=== PATIENT | female | born 1945 | race Caucasian/White ===

== ENCOUNTER → 2017-01-02 | Outpatient (CLI) | payer MEDICARE | LOC: CPPFTMAIN 13:21 | PROVIDERS: ATTEND Physician Assistant | DX: J45.909 Unspecified asthma, uncomplicated (principal) | CPT/HCPCS: 94060; 94726; 94729 ==

== ENCOUNTER → 2017-04-08 | Outpatient (CLI) | payer MEDICARE ==
--- NOTE | 2017-04-10 09:27 | MM ---
Reason for exam: screening (asymptomatic). Last mammogram was performed 3 years and 3 months ago. History: Patient is postmenopausal. Cyst aspiration of the right breast, 1995. Took hormonal contraceptives for 1 year. Took estrogen for 5 years. Took progesterone for 5 years. Physical Findings: A clinical breast exam by your physician is recommended on an annual basis and results should be correlated with mammographic findings. MG 3D Screening Mammo W/Cad Bilateral CC and MLO view(s) were taken. Prior study comparison: December 29, 2013, bilateral MG screening mammo w CAD. October 16, 2010, bilateral digital screening mammo w/CAD. There are scattered fibroglandular densities. There is a 4mm mass with calcifications in the central lower right breast at middle depth. Just anterior to this also on 3D image 14/61 thre is a 4mm asymmetry. ASSESSMENT: Incomplete: need additional imaging evaluation, BI-RAD 0 RECOMMENDATION: Special view mammogram of the right breast. If lesion persists on supplemental views, image directed ultrasound is recommended. [facility] will attempt to contact patient to return for supplemental views and ultrasound if indicated.
== END | disposition home or self-care (01) ==
LOC: RADMAMWWP 07:26
PROVIDERS: ATTEND Internal Medicine
DX: Z12.31 Encounter for screening mammogram for malignant neoplasm of breast (principal)
CPT/HCPCS: 77063; G0202

== ENCOUNTER → 2017-04-16 | Outpatient (CLI) | payer MEDICARE ==
--- NOTE | 2017-04-17 10:15 | MM ---
Reason for exam: additional evaluation requested from abnormal screening. Last mammogram was performed less than 1 month ago. History: Patient is postmenopausal. Cyst aspiration of the right breast, 1995. Took hormonal contraceptives for 1 year. Took estrogen for 5 years. Took progesterone for 5 years. Physical Findings: Nurse did not find any significant physical abnormalities on exam. MG 3D Work Up W/Cad RT CC, MLO, ML, spot compression CC, and spot compression MLO view(s) were taken of the right breast. Prior study comparison: April 08, 2017, bilateral MG 3d screening mammo w/cad. December 29, 2013, bilateral MG screening mammo w CAD. Finding: There are typically benign calcifications in the right breast. Tiny nodularity in the right breast persists. No suspicious lesion in the right breast. These results were verbally communicated with the patient and result sheet given to the patient on 04/16/17. ASSESSMENT: Benign, BI-RAD 2 RECOMMENDATION: Follow-up diagnostic mammogram of both breasts in 1 year.
== END ==
LOC: RADMAMWWP 13:58
PROVIDERS: ATTEND Internal Medicine
DX: R92.8 Other abnormal and inconclusive findings on diagnostic imaging of breast (principal)
CPT/HCPCS: G0206; G0279

== ENCOUNTER → 2018-09-25 | Outpatient (CLI) | payer MEDICARE ==
--- NOTE | 2018-09-26 11:41 | MM ---
Reason for exam: screening (asymptomatic). Last mammogram was performed 1 year and 5 months ago. History: Patient is postmenopausal. Cyst aspiration of the right breast, 1995. Took hormonal contraceptives for 1 year. Took estrogen for 5 years. Took progesterone for 5 years. Physical Findings: A clinical breast exam by your physician is recommended on an annual basis and results should be correlated with mammographic findings. MG 3D Screening Mammo W/Cad Bilateral CC and MLO view(s) were taken. Prior study comparison: April 16, 2017, right breast MG 3d work up w/cad RT. April 08, 2017, bilateral MG 3d screening mammo w/cad. The breast tissue is heterogeneously dense. This may lower the sensitivity of mammography. There is no discrete abnormality. No significant changes when compared with prior studies. ASSESSMENT: Negative, BI-RAD 1 RECOMMENDATION: Routine screening mammogram of both breasts in 1 year.
== END | disposition home or self-care (01) ==
LOC: RADMAMWWP 09:03
PROVIDERS: ATTEND Internal Medicine
DX: Z12.31 Encounter for screening mammogram for malignant neoplasm of breast (principal)
CPT/HCPCS: 77063; 77067

== ENCOUNTER → 2022-05-15 | Outpatient (CLI) | payer MEDICARE ==
--- NOTE | 2022-05-15 13:14 | CT ---
EXAMINATION TYPE: CT foot LT wo con CT DLP: 335.50 mGycm, Automated exposure control for dose reduction was used. DATE OF EXAM: 05/15/2022 12:54 PM COMPARISON: None CLINICAL INDICATION:Female, 77 years old with history of M79.675 pain, LT toe pain, possible lesion, pt diabetic TECHNIQUE: Axial images were obtained of the left foot . Additional coronal and sagittal reformatted images and soft tissue and bone window were obtained for review. 3-D reconstruction was created on a separate workstation. Contrast used: None Oral contrast used: None FINDINGS: Diffuse soft tissue edema seen throughout the soft tissues of the foot. No organizing fluid collection identified. There is degeneration changes and subchondral cystic changes most pronounced at the first digit metatarsal head. Additional joint space narrowing is present. No evidence of fract ure. No evidence of osseous erosion to suggest osteomyelitis. No CT evidence for soft tissue wound or osseous bone lesion. IMPRESSION: 1. Diffuse soft tissue swelling and edema. 2. Mild degeneration changes at the joints of the foot most pronounced at this first digit tarsometa tarsal joint. 3. No evidence of osseous erosion to suggest osteomyelitis. 4. No evidence of acute fracture.
== END ==
LOC: RADCTMAIN 11:21
PROVIDERS: ATTEND Family Medicine
DX: M19.072 Primary osteoarthritis, left ankle and foot (principal); M79.89 Other specified soft tissue disorders

== ENCOUNTER → 2022-07-30 | Outpatient (CLI) | payer MEDICARE ==
--- NOTE | 2022-07-31 08:40 | MM ---
Reason for Exam: Screening (asymptomatic). Last mammogram was performed 3 year(s) and 10 month(s) ago. Patient History: Menarche at age 13. First Full-Term at age 22. Postmenopausal. Estrogen for 5 years until age 57. Progesterone for 5 years until age 57. Hormonal Contraceptives for 1 year until age 23. 1996, Cyst Aspiration on the Right side. Risk Values: Yamilet 5 year model risk: 1.6%. NCI Lifetime model risk: 3.2%. Prior Study Comparison: 04/08/2017 Bilateral Screening Mammogram, [facility]. 04/16/2017 Right Diagnostic Mammogram, [facility]. 09/25/2018 Bilateral Screening Mammogram, [facility]. Tissue Density: There are scattered fibroglandular densities. Findings: Analyzed By CAD. There is no suspicious group of microcalcifications or new suspicious mass in either breast. Overall Assessment: Negative, BI-RAD 1 Management: Screening Mammogram of both breasts in 1 year. A clinical breast exam by your physician is recommended on an annual basis and results should be correlated with mammographic findings. Electronically signed and approved by: Pepe Bar M.D. Radiologis
== END | disposition home or self-care (01) ==
LOC: RADMAMWWP 09:40
PROVIDERS: ATTEND Family Medicine
DX: Z12.31 Encounter for screening mammogram for malignant neoplasm of breast (principal); Z78.0 Asymptomatic menopausal state
CPT/HCPCS: 77063; 77067

== ENCOUNTER → 2023-07-24 | Outpatient (CLI) | payer MEDICARE ==
--- NOTE | 2023-07-24 18:10 | US ---
EXAMINATION TYPE: US thyroid st tissue head/neck DATE OF EXAM: 07/24/2023 COMPARISON: NONE CLINICAL INDICATION: Female, 78 years old with history of E04.1 NONTOXIC SINGLE THYROID NODULE; GLAND SIZE: Right Lobe: 4.6 x 1.3 x 1.2 cm Overall Parenchyma: heterogenous Left Lobe: 4.9 x 1.5 x 0.9 cm Overall Parenchyma: heterogenous Isthmus Thickness: 0.5 cm NODULES RIGHT: # of nodules measured on right: A few scattered nodules, largest measured 1. 0.9 X 0.9 x 0.5 cm, lower, mixed cystic and solid, hypoechoic TR 4 nodule, which is wider than t all, with smooth margins, with echogenic foci. Prior size: TEAROOM HOST LEFT: # of nodules measured on left: Few scattered nodules, measured largest 1. 0.7 X 0.5 x 0.4 cm, mid, cystic or almost completely cystic, anechoic TR to nodule, which is wid er than tall, with smooth margins, without echogenic foci. Prior size: TEAROOM HOST ISTHMUS: # of nodules measured in the isthmus: 0 Bilateral neck scanned, no evidence of lymphadenopathy. IMPRESSION: Consider multinodular goiter. Dominant 9 mm TR4 nodule in the right lobe. 2017 ACR TI-RADS LEVEL: TR-RADS 4 - Moderately Suspicious: Follow if > 1 cm, FNA if > 1.5 cm *Highest TI-RADS level nodule reported
== END | disposition home or self-care (01) ==
LOC: RADUSWWP 15:25
PROVIDERS: ATTEND Family Medicine
DX: E04.2 Nontoxic multinodular goiter (principal)
CPT/HCPCS: 76536

== ENCOUNTER → 2023-08-19 | Outpatient (CLI) | payer MEDICARE ==
--- NOTE | 2023-08-19 09:19 | MM ---
Reason for Exam: Screening (asymptomatic). Last mammogram was performed 1 year(s) and 1 month(s) ago. Patient History: Menarche at age 13. First Full-Term at age 22. Postmenopausal. Estrogen for 5 years until age 57. Progesterone for 5 years until age 57. Hormonal Contraceptives for 1 year until age 23. 1996, Cyst Aspiration on the Right side. Risk Values: Yamilet 5 year model risk: 1.6%. NCI Lifetime model risk: 3.0%. Prior Study Comparison: 04/16/2017 Right Diagnostic Mammogram, [facility]. 09/25/2018 Bilateral Screening Mammogram, [facility]. 07/30/2022 Bilateral MG 3D screening mammo w/cad, [facility]. Tissue Density: There are scattered fibroglandular densities. Findings: Analyzed By CAD. There is no suspicious group of microcalcifications or new suspicious mass. Overall Assessment: Negative, BI-RAD 1 Management: Screening Mammogram of both breasts in [address] [facility] will attempt to contact patient to return for supplemental views and ultrasound if indicated. Patient should continue monthly self-breast exams. A clinical breast exam by your physician is recommended on an annual basis. This exam should not preclude additional follow-up of suspicious palpable abnormalities. Note on Yamilet scores and lifetime risk: 1. A Yamilet score greater than 3% is considered moderate risk. If this is the case, consider specialist referral to assess eligibility for a risk reducing agent. 2. If overall lifetime risk for the development of breast cancer is 20% or higher, the patient may qualify for future screening with alternating mammogram and breast MRI. Electronically signed and approved by: Hansel Ambrosio DO
== END | disposition home or self-care (01) ==
LOC: RADMAMWWP 08:26
PROVIDERS: ATTEND Family Medicine
DX: Z12.31 Encounter for screening mammogram for malignant neoplasm of breast (principal)
CPT/HCPCS: 77063; 77067

== ENCOUNTER 2024-10-01 22:24 | Emergency (ER) | payer MEDICARE ==
[2024-10-01 23:55] LABS: ALT 36 U/L (4-34); AST 34 U/L (14-36); African American GFR (CKD) >90 (>60 ml/min/1.73 sqM); Albumin 4.4 g/dL (3.5-5.0); Alkaline Phosphatase 76 U/L (38-126); Anion Gap 12 mmol/L; Blood Urea Nitrogen 18 mg/dL (7-17); Calcium 9.8 mg/dL (8.4-10.2); Carbon Dioxide 23 mmol/L (22-30); Chloride 96 mmol/L (98-107); Glucose 106 mg/dL (74-99); Non-African American GFR(CKD) 79 (>60 ml/min/1.73 sqM); Potassium 3.5 mmol/L (3.5-5.1); Sodium 131 mmol/L (137-145); Total Bilirubin 1.1 mg/dL (0.2-1.3); Total Protein 6.8 g/dL (6.3-8.2)
[2024-10-02 00:02] LABS: Basophils % (A) 0 %; Eosinophils # (A) 0.2 k/uL (0-0.7); Eosinophils % (A) 3 %; HGB 13.5 gm/dL (11.4-16.0); Lymphocytes # (A) 2.1 k/uL (1.0-4.8); Lymphocytes % (A) 26 %; MCH 31.1 pg (25.0-35.0); MCHC 33.7 g/dL (31.0-37.0); MCV 92.2 fL (80.0-100.0); Mean Platelet Volume 8.8; Monocytes # (A) 0.5 k/uL (0-1.0); Monocytes % (A) 7 %; Neutrophils # (A) 4.8 k/uL (1.3-7.7); Neutrophils % (A) 62 %; Platelet Count 211 k/uL (150-450); RBC 4.34 m/uL (3.80-5.40); RDW 12.3 % (11.5-15.5); WBC 7.8 k/uL (3.8-10.6)
--- NOTE | 2024-10-02 02:40 | US ---
EXAM: US Duplex Left Lower Extremity Veins CLINICAL HISTORY: US Reason: Swelling and pain TECHNIQUE: Real-time duplex ultrasound scan of the left lower extremity veins integrating B-mode two-dimensional vascular structure, Doppler spectral analysis, color flow Doppler imaging and compression. COMPARISON: No relevant prior studies available. FINDINGS: Deep veins: Unremarkable. No DVT in the visualized common femoral, femoral, proximal deep femoral or popliteal veins. The veins demonstrate normal color flow, are normally compressible, with normal phasic flow and/or augmentation response. Superficial veins: Unremarkable. No thrombus in the visualized great saphenous vein. Soft tissues: There is a 6.8 x 3 x 5.6 cm slightly complex David cyst in the left popliteal fossa. IMPRESSION: 1. There is a 6.8 x 3 x 5.6 cm slightly complex David cyst in the left popliteal fossa. 2. No evidence of DVT in the left lower extremity.
--- NOTE | 2024-10-02 02:48 | ED ---
Extremity Problem HPI - General Chief complaint: Extremity Problem,Nontraumatic Stated complaint: chest pain,Leg pain Time Seen by Provider: 10/01/24 23:11 Source: patient Mode of arrival: ambulatory Limitations: no limitations - History of Present Illness Initial comments: 79-year-old female presenting with chief complaint of a swollen and painful spot on the back of her left knee. This has been present for several days. No injury or trauma. Patient does have increased pain with weightbearing and ambulating. No swelling of the lower leg. No erythema. No fevers or chills. No nausea or vomiting. No numbness or tingling. No chest pain. Patient denies shortness of breath. - Related Data Home Medications Medication Instructions Recorded Confirmed ALPRAZolam [Xanax] 0.5 mg PO TID PRN 01/25/20 01/25/20 Albuterol Nebulized [Ventolin 2.5 mg INHALATION Q6H PRN 01/25/20 01/25/20 Nebulized] Atorvastatin [Lipitor] 20 mg PO HS 01/25/20 01/25/20 Desvenlafaxine Succinate [Pristiq] 100 mg PO DAILY 01/25/20 01/25/20 Liraglutide [Victoza 2-Archie] 0.6 mg SQ DAILY 01/25/20 01/25/20 Loratadine [Claritin] 10 mg PO DAILY 01/25/20 01/25/20 Losartan Potassium 100 mg PO DAILY 01/25/20 01/25/20 Metoprolol Succinate [Toprol XL] 100 mg PO DAILY 01/25/20 01/25/20 Mometasone Furoate [Asmanex] 2 puff INHALATION BID 01/25/20 01/25/20 Montelukast [Singulair] 10 mg PO HS 01/25/20 01/25/20 amLODIPine BESYLATE 5 mg PO DAILY 01/25/20 01/25/20 busPIRone HCl [Buspar] 10 mg PO BID 01/25/20 01/25/20 metFORMIN HCL [Glucophage] 1,000 mg PO BID 01/25/20 01/25/20 Allergies Allergy/AdvReac Type Severity Reaction Status Date / Time wheat AdvReac Abdominal Verified 01/25/20 14:51 Pain Review of Systems ROS Statement: Those systems with pertinent positive or pertinent negative responses have been documented in the HPI. ROS Other: All systems not noted in ROS Statement are negative. Past Medical History Past Medical History: Asthma, Diabetes Mellitus, Hyperlipidemia, Hypertension Additional Past Medical History / Comment(s): HX DIVERTICULITIS. ENVIRONMENTAL/SEASONAL ALLERGIES. HX INTERNAL HEMORRHOID History of Any Multi-Drug Resistant Organisms: None Reported Additional Past Surgical History / Comment(s): PARTIAL PARATHYROIDECTOMY. COLONOSCOPY Past Anesthesia/Blood Transfusion Reactions: No Reported Reaction Past Psychological History: Anxiety, Depression Smoking Status: Former smoker Past Alcohol Use History: None Reported Past Drug Use History: None Reported - Past Family History Father Family Medical History: Deep Vein Thrombosis (DVT) Mother Family Medical History: Deep Vein Thrombosis (DVT) General Exam Limitations: no limitations General appearance: alert, in no apparent distress Head exam: Present: atraumatic, normocephalic, normal inspection Eye exam: Present: normal appearance, EOMI Neck exam: Present: normal inspection. Absent: meningismus Respiratory exam: Present: normal lung sounds bilaterally. Absent: respiratory distress, wheezes, rales, rhonchi, stridor Cardiovascular Exam: Present: regular rate, normal rhythm, normal heart sounds. Absent: systolic murmur, diastolic murmur, rubs, gallop, clicks Left Knee exam: Present: normal inspection, full ROM, tenderness (There is some tenderness and swelling over the posterior knee) Lower Leg exam: Present: normal inspection Ankle exam: Present: normal inspection Foot/Toe exam: Present: normal inspection Neurovascular tendon exam: Present: no vascular compromise Neurological exam: Present: alert, oriented X3 Psychiatric exam: Present: normal affect, normal mood Skin exam: Present: warm, dry, normal color Course Vital Signs 10/01/24 10/02/24 22:28 03:03 Temperature 97.2 F L 98.2 F Pulse Rate 92 84 Respiratory 20 18 Rate Blood Pressure 149/85 127/80 O2 Sat by Pulse 97 97 Oximetry Medical Decision Making - Medical Decision Making Was pt. sent in by a medical professional or institution (, PA, PHYSICIST [employer], urgent care, hospital, or residential...) When possible be specific @ -No Did you speak to anyone other than the patient for history (EMS, parent, family, police, friend...)? What history was obtained from this source @ -Daughter Did you review nursing and triage notes (agree or disagree)? Why? @ -I reviewed and agree with nursing and triage notes Were old charts reviewed (outside hosp., previous admission, EMS record, old EKG, old radiological studies, urgent care reports/EKG's, residential records)? Report findings @ -No old charts were reviewed Differential Diagnosis (chest pain, altered mental status, abdominal pain women, abdominal pain men, vaginal bleeding, weakness, fever, dyspnea, syncope, headache, dizziness, GI bleed, back pain, seizure, CVA, palpatations, mental health, musculoskeletal)? @ -Differential Musculoskeletal Muscular strain, contusion, ligament sprain, fracture, arthritis, septic arthritis, bursitis, cellulitis, muscle spasm, nerve compression, DVT, arterial occlusion, herpes zoster, electrolyte abnormality, tumor.... This is not meant to be in all inclusive list EKG interpreted by me (3pts min.). @ -EKG shows sinus rhythm ventricular rate 83. FL interval 204. QRS 113. QT 405. QTc 445. X-rays interpreted by me (1pt min.). @ -None done CT interpreted by me (1pt min.). @ -None done U/S interpreted by me (1pt. min.). @ -Ultrasound shows 6.8 x 3 x 5.6 cm slightly complex David's cyst in the left popliteal fossa. No evidence of DVT in the left lower extremity What testing was considered but not performed or refused? (CT, X-rays, U/S, labs)? Why? @ -None What meds were considered but not given or refused? Why? @ -None Did you discuss the management of the patient with other professionals (professionals i.e. , PA, PHYSICIST [employer], lab, RT, psych nurse, family welfare social work professor, filling machine set up mechanic, teacher, chief school finance officer, immigration case manager)? Give summary @ -No Was smoking cessation discussed for >3mins.? @ -No Was critical care preformed (if so, how long)? @ -No Were there social determinants of health that impacted care today? How? (Homelessness, low income, unemployed, alcoholism, drug addiction, tra nsportation, low edu. Level, literacy, decrease access to med. care, skilled nursing, rehab)? @ -No Was there de-escalation of care discussed even if they declined (Discuss DNR or withdrawal of care, Hospice)? DNR status @ -No What co-morbidities impacted this encounter? (DM, HTN, Smoking, COPD, CAD, Cancer, CVA, ARF, Chemo, Hep., AIDS, mental health diagnosis, sleep apnea, morbid obesity)? @ -None Was patient admitted / discharged? Hospital course, mention meds given and route, prescriptions, significant lab abnormalities, going to OR and other pertinent info. @ -79-year-old female presenting with chief complaint of pain and swelling in the left knee. No injury or trauma. History and physical examination are conducted. Neurovascularly intact. There is a swollen area over the posterior knee. Ultrasound is negative for DVT. There is a David's cyst present. Labs require no immediate action. Patient is educated on today's findings and provided with orthopedic follow-up. Follow-up with PCP. Report back to ER with any new or worsening symptoms. Discussed return parameters and answered all questions. Patient conveyed verbal understanding and agreed to the plan. I discussed this case in detail with my attending Dr. Peralta Undiagnosed new problem with uncertain prognosis? @ -No Drug Therapy requiring intensive monitoring for toxicity (Heparin, Nitro, Insulin, Cardizem)? @ -No Were any procedures done? @ -No Diagnosis/symptom? @ -David's cyst Acute, or Chronic, or Acute on Chronic? @ -Acute Uncomplicated (without systemic symptoms) or Complicated (systemic symptoms)? @ -Uncomplicated Side effects of treatment? @ -No Exacerbation, Progression, or Severe Exacerbation? @ -No Poses a threat to life or bodily function? How? (Chest pain, [place], [place], pneumonia, PE, COPD, DKA, ARF, appy, cholecystitis, CVA, Diverticulitis, Homicidal, Suicidal, threat to staff... and all critical care pts) @ -Unlikely - Lab Data Result diagrams: 10/01/24 22:53 10/01/24 22:53 Lab Results 10/01/24 10/01/24 Range/Units 22:53 22:53 WBC 7.8 (3.8-10.6) k/uL RBC 4.34 (3.80-5.40) m/uL Hgb 13.5 (11.4-16.0) gm/dL Hct 40.0 (34.0-46.0) % MCV 92.2 (80.0-100.0) fL MCH 31.1 (25.0-35.0) pg MCHC 33.7 (31.0-37.0) g/dL RDW 12.3 (11.5-15.5) % Plt Count 211 (150-450) k/uL MPV 8.8 Neutrophils % 62 % Lymphocytes % 26 % Monocytes % 7 % Eosinophils % 3 % Basophils % 0 % Neutrophils # 4.8 (1.3-7.7) k/uL Lymphocytes # 2.1 (1.0-4.8) k/uL Monocytes # 0.5 (0-1.0) k/uL Eosinophils # 0.2 (0-0.7) k/uL Basophils # 0.0 (0-0.2) k/uL Sodium 131 L (137-145) mmol/L Potassium 3.5 (3.5-5.1) mmol/L Chloride 96 L (98-107) mmol/L Carbon Dioxide 23 (22-30) mmol/L Anion Gap 12 mmol/L BUN 18 H (7-17) mg/dL Creatinine 0.73 (0.52-1.04) mg/dL Est GFR (CKD-EPI)AfAm >90 (>60 ml/min/1.73 sqM) Est GFR (CKD-EPI)NonAf 79 (>60 ml/min/1.73 sqM) Glucose 106 H (74-99) mg/dL Calcium 9.8 (8.4-10.2) mg/dL Total Bilirubin 1.1 (0.2-1.3) mg/dL AST 34 (14-36) U/L ALT 36 H (4-34) U/L Alkaline Phosphatase 76 (38-126) U/L Total Protein 6.8 (6.3-8.2) g/dL Albumin 4.4 (3.5-5.0) g/dL Disposition Clinical Impression: David's cyst Disposition: HOME SELF-CARE Condition: Good Instructions (If sedation given, give patient instructions): David Cyst (ED) Additional Instructions: Follow-up with PCP and/or orthopedics. Report back to ER with any new or worsening symptoms. Is patient prescribed a controlled substance at d/c from ED?: No Referrals: Pernell Perry MD [Primary Care Provider] - 1-2 days Giovanni Claudio MD [STAFF PHYSICIAN] - 1-2 days Time of Disposition: 02:48
[2024-10-02 03:06] VITALS: BP 127/80; PULSE 84; RESP 18; TEMP 98.2
[2024-10-02] MEDS: ACET/COD 300 MG/30 MG STARTER PACK 6 TAB BTL PO STA (03:08)
== END 2024-10-02 03:09 | disposition home or self-care (01) ==
LOC: EC 22:24
DX: M71.22 Synovial cyst of popliteal space [Baker], left knee (principal); Z87.891 Personal history of nicotine dependence; Z91.018 Allergy to other foods
CPT/HCPCS: 36415; 80053; 85025; 99285